=== PATIENT | female | born 1980 | race Caucasian/White ===

== ENCOUNTER 2021-08-04 09:01 | Emergency (ER) | payer BC ==
--- OUTSIDE RECORDS SUMMARY | 2021-08-04 09:04 | XMS REPORT | Continuity of Care Document ---
:1980 Author Organization [facility] t Address [address] [place] [address] Care Team Providers Name Role Phone Unavailable Unavailable Unavailable Problems This patient has no known problems. Allergies, Adverse Reactions, Alerts This patient has no known allergies or adverse reactions. Medications Ordered Filled Start Stop Current Ordering Indication Dosage Frequency Signature Comments Components Source Medication Medication Date Date Medication? Clinician (SIG) Name Name Nystatin-Tr Nystatin-Tr Yes Junaid [address] [facility] iamcinolone iamcinolone 4-12 [facility] applic[facility] 00 affected l area [facility] Clinics Levothyroxi Levothyroxi Yes Junaid [address] [facility] ne Sodium ne Sodium Obrien on an Lillian es - empty [facility] stomach in l the Outpati morning ent Clinics Euthyrox Euthyrox Yes Junaid TAKE [address] [facility]rien TABLET BY [facility] - MOUTH ONCE [facility] DAILY IN l THE Outpati MORNING ON ent AN EMPTY Clinics STOMACH FOR 30 DAYS Immunizations Ordered Filled Immunization Date Status Comments Sourc e Immunization Name Name TDAP > 7 TDAP > 7 2018-10-[address] [facility] - Years-Adacel Years-Adacel 00:00:00 [facility] Procedures This patient has no known procedures. Encounters Start End Encounter Admission Attending Care Care Encounter Source Date/Time Date/Time Type Type Clinicians Facility Department ID 2021-06-08 2021-06-08 Outpatient [facility] [id number] [facility] 2021-03-11 2021-03-11 [facility] [id number] [facility] 2021-03-09 2021-03-09 [facility] [id number] [facility] 2021-03-09 2021-03-09 [facility] [id number] [facility] 2021-01-15 2021-01-15 [facility] [id number] [facility] 2021-01-13 2021-01-13 Out[facility] [id number] [facility] 2020-10-02 2020-10-02 Out[facility] [id number] [facility] 2020-08-03 2020-08-03 Out[facility] [id number] [facility] 2020-06-26 2020-06-26 Out[facility] [id number] [facility] 2020-03-19 2020-03-19 [facility] [id number] [facility] 10[facility]30[facility] 10:30:[address] [address] [facility] - [facility] Medicine l Medicine Outpati ent Clinics 2020-01-10 2020-01-10 [facility] [id number] [facility] 09:00:00 09:00:[address] [facility] - Drive [facility] Medicine l Medicine Outpati ent Clinics 2019-07-24 2019-07-24 [facility] [id number] [facility] 10[facility]00:00 10:00:[address] Luke [facility] - Drive [facility] Medicine Outpati ent Clinics 2019-06-28 2019-06-28 [facility] [id number] [facility] 12:05:00 12:05:00 [place] [employer] [facility] - [employer] Medicine Outpati ent Clinics 2019-05-28 2019-05-28 [facility] [id number] 09:25:00 09:25:00 [place] - Drive [facility] Medicine Outpati ent Clinics 2019-04-02 2019-04-02 [facility] [id number] 11:08:00 11:08:00 [place] - [facility] Medicine Outpati ent Clinics 2019-03-08 2019-03-08 [facility] [id number] [address] 11:15:00 11:15:00 [place] [employer] [facility] Medicine Outpati ent Clinics 2019-01-07 2019-01-07 [facility] [id number] [address] 16:59:00 16:59:00 [facility] Clinic l Outpati ent Clinics 2018-12-28 2018-12-28 [facility] [id number] [facility] 11:00:00 11:00:00 [facility] Clinic l Outpati ent Clinics 2018-10-11 2018-10-11 [facility] [id number] [address] 11:30:00 11:30:00 [place] [employer] [facility] Medicine Outpati ent Clinics 2018-06-22 2018-06-22 [facility] [id number] [facility] 08:45:00 08:45:00 [place] - [facility] Medicine Outpati ent Clinics 2018-06-13 2018-06-13 [facility] [id number] 09:30:00 09:30:00 [place] [address] [facility] Medicine Outpati ent Clinics 2018-04-19 2018-04-19 [facility] [id number] 08:30:00 08:30:[address] [facility] Medicine Outpati ent Clinics Results This patient has no known results.
--- NOTE | 2021-08-04 09:56 | RAD REPORT ---
EXAM DESCRIPTION: RAD - Knee Right 3 View - 08/04/2021 9:33 am CLINICAL HISTORY: PAIN COMPARISON: <Comparisons> FINDINGS: No acute fracture. No malalignment. No significant focal degenerative changes. Intramedull dory emanuel in the tibia. No evidence of hardware complications. IMPRESSION: No acute osseous abnormality involving the right knee.
--- NOTE | 2021-08-04 10:06 | ER ---
Nurse's Notes [facility] Name: Taisha Torres Age: 41 yrs Sex: Female : 1980 Arrival Date: 08/04/2021 Time: 09:04 Bed 10 Private MD: Junaid Obrien Diagnosis: Pain in right knee Presentation: 08/04 09:06 Chief complaint: Patient states: fell onto right knee yesterday. Pt c/o right knee aa5 pain. Coronavirus screen: At this time, the client does not indicate any symptoms associated with coronavirus-19. Ebola Screen: No symptoms or risks identified at this time. Initial Sepsis Screen: Does the patient meet any 2 criteria? No. Patient's initial sepsis screen is negative. Does the patient have a suspected source of infection? No. Patient's initial sepsis screen is negative. Risk Assessment: Do you want to hurt yourself or someone else? Patient reports no desire to harm self or others. Onset of symptoms was July 2021. 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 - Social history:: Smoking status: Patient denies any tobacco usage or history of. Screenin:14 Abuse screen: Denies threats or abuse. Nutritional screening: No deficits noted. tw2 Tuberculosis screening: No symptoms or risk factors identified. Fall Risk None identified. Assessment: 09:09 General: Appears in no apparent distress. well groomed, Behavior is calm, cooperative, tw2 appropriate for age. Pain: Complains of pain in right knee. Neuro: Level of Consciousness is awake, alert, obeys commands, Oriented to person, place, time, Appropriate for age. Respiratory: Airway is patent Respiratory effort is even, unlabored, Respiratory pattern is regular, symmetrical. Musculoskeletal: Reports pain in right knee. 09:28 Reassessment: xray at bedside at this time. tw2 09:45 Reassessment: Patient appears in no apparent distress at this time. No changes from tw2 previously documented assessment. 10:07 Reassessment: Patient appears in no apparent distress at this time. No changes from tw2 previously documented assessment. Vital Signs: 09:06 BP 117 / 79; Pulse 80; Resp 16 S; Temp 97.8(TE); Pulse Ox 100% on R/A; Weight 70.9 kg aa5 (R); Height 4 ft. 11 in. (149.86 cm) (R); 09:06 Body Mass Index 31.57 (70.90 kg, 149.86 cm) aa5 ED Course: 09:04 Patient arrived in ED. am2 09:05 Junaid Obrien DO is Private Physician. am2 09:05 Acacia Jacobs FNP-C is [facility]. kb 09:05 Rajinder Camarena MD is Attending Physician. kb 09:06 Arm band placed on. aa5 09:07 Triage completed. aa5 09:09 Bed in low position. Call light in reach. tw2 09:13 Candi Saldana, RN is Primary Nurse. tw2 09:29 No provider procedures requiring assistance completed. tw2 09:34 Knee Right 3 View XRAY In Process Unspecified. EDMS 09:45 Warm blanket given. tw2 10:13 Patient did not have IV access during this emergency room visit. tw2 Administered Medications: No medications were administered Outcome: 10:05 Discharge ordered by . kb 10:12 Discharged to home ambulatory. tw2 10:12 Condition: stable 10:12 Discharge instructions given to patient, Instructed on discharge instructions, follow up and referral plans. CMS checks after PANCHO wrapping Demonstrated understanding of instructions, follow-up care, cms checks after pancho wrapping 10:13 Patient left the ED. tw2 Signatures: Dispatcher [employer] EDMS Acacia Jacobs FNP-C FNP-Ckb Calderon, Audri, RN RN aa5 Candi Saldana RN RN tw2 Usha Salazar am2 Corrections: (The following items were deleted from the chart) 09:08 09:06 Pulse 80bpm; Resp 16bpm; Spontaneous; Pulse Ox 100% RA; Temp 97.8F Temporal; aa5 aa5 09:09 09:06 BP 117 / 79; Pulse 80bpm; Resp 16bpm; Spontaneous; Pulse Ox 100% RA; Temp 97.8F aa5 Temporal; aa5
--- NOTE | 2021-08-04 10:06 | EDPHYS ---
Physician Documentation [facility] Name: Taisha Torres Age: 41 yrs Sex: Female : 1980 Arrival Date: 08/04/2021 Time: 09:04 Bed 10 Private MD: [facility] ED Physician Rajinder Camarena HPI: 08/04 09:58 This 41 yrs old Female presents to ER via Wheelchair with complaints of Knee kb Pain - right. 10:03 The patient presents with decreased range of motion, an injury, pain. The complaints kb affect the right knee. Context: The problem was sustained at home, resulted from the patient falling, the patient can fully bear weight, the patient is able to ambulate. Onset: The symptoms/episode began/occurred yesterday. Modifying factors: The symptoms are alleviated by nothing. the symptoms are aggravated by weight bearing, bending knee. Associated signs and symptoms: The patient has no apparent associated signs or symptoms. Treatment prior to arrival includes: no previous treatment. Severity of symptoms: At their worst the symptoms were moderate, in the emergency department the symptoms are unchanged. The patient has not experienced similar symptoms in the past. The patient has not recently seen a physician. Pt reports she tripped over dog's leash yesterday and fell onto right knee. c/o right knee pain now. 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 - Social history:: Smoking status: Patient denies any tobacco usage or history of. ROS: 09:53 Constitutional: Negative for fever, chills, and weight loss. kb 09:53 MS/extremity: Positive for injury or acute deformity, decreased range of motion, pain, of the right knee. 09:53 All other systems are negative. Exam: 09:53 Constitutional: This is a well developed, well nourished patient who is awake, alert, kb and in no acute distress. Head/Face: Normocephalic, atraumatic. ENT: Moist Mucous membranes Respiratory: Respirations even and unlabored. No increased work of breathing, no retractions or nasal flaring. Skin: Warm, dry with normal turgor. Normal color. Neuro: Awake and alert, GCS 15, oriented to person, place, time, and situation. Moves all extremities. Normal gait. Psych: Awake, alert, with orientation to person, place and time. Behavior, mood, and affect are within normal limits. 09:53 Musculoskeletal/extremity: Extremities: grossly normal except: noted in the right knee: decreased ROM, pain, ROM: limited active range of motion due to pain, in the right knee, Circulation is intact in all extremities. Sensation intact. Weight bearing: able to fully bear weight. Vital Signs: 09:06 BP 117 / 79; Pulse 80; Resp 16 S; Temp 97.8(TE); Pulse Ox 100% on R/A; Weight 70.9 kg aa5 (R); Height 4 ft. 11 in. (149.86 cm) (R); 09:06 Body Mass Index 31.57 (70.90 kg, 149.86 cm) aa5 MDM: 09:09 Patient medically screened. kb 09:53 Data reviewed: vital signs, nurses notes. Data interpreted: Pulse oximetry: on room air kb is 100 %. Interpretation: normal. 10:02 Counseling: I had a detailed discussion with the patient and/or guardian regarding: the kb historical points, exam findings, and any diagnostic results supporting the discharge/admit diagnosis, radiology results, the need for outpatient follow up, a orthopedic surgeon, to return to the emergency department if symptoms worsen or persist or if there are any questions or concerns that arise at home. 08/04 09:08 Order name: Knee Right 3 View XRAY; Complete Time: 10:02 kb Administered Medications: No medications were administered Disposition: 11:36 Co-signature as Attending Physician, Rajinder Camarena MD I agree with the assessment and rn plan of care. Attestation: The patient's history, exam findings, diagnostics, and a summary of any interventions or procedures was reviewed in detail with Acacia VALERIO. Disposition Summary: 08/04/21 10:05 Discharge Ordered Location: Home Condition: Stable kb Diagnosis - Pain in right knee kb Followup: kb - With: Emergency Department - When: As needed - Reason: Worsening of condition Followup: kb - With: Private Physician - When: 2 - 3 days - Reason: Recheck today's complaints, Continuance of care, Re-evaluation by your physician Discharge Instructions: - Acute Knee Pain, Adult, [id number] kb - Discharge Summary Sheet tw2 Forms: - Medication Reconciliation Form kb - Thank You Letter kb - Antibiotic Education kb - Work release form tw2 - Prescription Opioid Use kb Signatures: Dispatcher [employer] EDAcacia Elizondo, IMAN ACOSTA-Rajinder Nair MD MD rn Calderon, Audri, RN RN aa5
[2021-08-04 10:26] VITALS: BP 117/79; TEMP 97.8; O2SAT 100
== END 2021-08-04 10:13 | disposition home or self-care (01) ==
LOC: ER 09:01
DX: M25.561 Pain in right knee (principal); E03.9 Hypothyroidism, unspecified
CPT/HCPCS: 99283

== ENCOUNTER 2024-02-15 14:23 | Emergency (ER) | payer OTHER ==
[2024-02-15] MEDS ORDERED: NA CHLORIDE 0.9% 1,000 ML ONE (15:21)
[2024-02-15] MEDS ORDERED: MORPHINE 4 MG/ML SYR ONE (15:49)
[2024-02-15] MEDS ORDERED: ONDANSETRON 4 MG/2 ML VIAL ONE (15:49)
[2024-02-15 16:07] LABS: Albumin 2.5 g/dL (3.4-5.0); Albumin/Globulin Ratio 0.6 (1.1-1.8); Alkaline Phosphatase 57 U/L (45-117); Anion Gap 8.5 mEq/L (5.0-15.0); BUN Blood Urea Nitrogen 13 mg/dL (7-18); Bicarbonate 24 mEq/L (21-32); Bilirubin Total 0.2 mg/dL (0.2-1.0); Globulin 4.3 g/dL (2.3-3.5); Glomerular Filtration Rate 95 ml/min (=/>90); Glucose Level 169 mg/dL (74-106); Lipase 12 U/L (13-75); Potassium 4.5 mEq/L (3.5-5.1); Protein, Total 6.8 g/dL (6.4-8.2); Sodium Level 133 mEq/L (136-145)
[2024-02-15 16:09] LABS: ALT/SGPT < 14 U/L (13-56); AST/SGOT < 10 U/L (15-37); Troponin High Sensitivity < 3.0 pg/mL (<58.9)
[2024-02-15 16:23] LABS: Absolute Eosinophils 0.3 K/uL (0-0.5); Absolute Lymphocytes (CBC) 1.2 K/uL (0.7-4.9); Absolute Monocytes 0.9 K/uL (0.1-1.3); Absolute Neutrophil 13.2 K/uL (1.8-8.0); Basophils % 0.3 % (0-1.3); Eosinophils % 1.6 % (0-4.4); Hematocrit 24.4 % (36.0-45.0); Hemoglobin 7.4 g/dL (12.0-15.0); Lymphocytes % 7.5 % (15.3-44.8); MCH 24.3 pg (27.0-35.0); MCHC 30.2 g/dL (32.0-36.0); MCV 80.3 fL (80-100); MPV 7.1 fL (7.6-11.3); Monocytes % 5.7 % (3.3-12.3); Neutrophils % 84.9 % (41.7-73.7); Platelets 472 thou/uL (152-406); RBC Red Blood Cell Count 3.04 M/uL (3.86-4.86); Red Cell Distribution Width 24.6 % (12.1-15.2)
[2024-02-15 16:47] LABS: Anisocytosis 2+; Blood Morphology Comment NOTED (NOT SEEN); Platelet Estimate INCR; White Blood Cell Scan OK (OK)
--- NOTE | 2024-02-15 16:47 | RAD REPORT ---
EXAM DESCRIPTION: CTAbdomen Pelvis W Contrast - 02/15/2024 4:37 pm CLINICAL HISTORY: Abdominal pain. Known cancer now bleeding;Abd pain COMPARISON: <Comparisons> TECHNIQUE: Biphasic CT imaging of the abdomen and pelvis was performed with 100 ml non-ionic IV cont rast. All CT scans are performed using dose optimization technique as appropriate and may include automated exposure control or mA/KV adjustment according to patient size. FINDINGS: The lung bases are clear. The liver is diffusely fatty. Spleen, pancreas, adrenal glands and kidneys are within normal limits. No bowel obstruction, free air, free fluid or abscess. Significant fecal retention is seen. Nonvisual ized appendix. Large necrotic lymph nodes are seen in both inguinal chains, largest on the left rm uring 3 cm, neoplastic in origin. Several perirectal lymph nodes are present in the inferior pelvis a nterior to the sacrum, largest measuring 9 mm. Left pelvic sidewall lymphadenopathy is present measur ing 23 mm. Right iliac chain lymphadenopathy measuring 21 mm. Large irregular necrotic vulvar mass measuring 13 x 7 cm. IMPRESSION: Irregular necrotic bulbar mass presumed malignant, 13 x 7 cm. Metastatic pelvic lymphadenopathy at multiple stations as described. Prominent constipation.
[2024-02-15 17:26] LABS: Specific Gravity 1.017 (1.005-1.030); Sqamous Epithelial <5 /HPF (None Seen); Urine Bacteria None Seen /HPF (<20); Urine Bilirubin NEGATIVE (Negative); Urine Blood 1+ (Negative); Urine Clarity Clear (Clear); Urine Color Colorless (Yellow); Urine Crystals Unidentified Few /HPF (None Seen); Urine Culture Reflex Order NOT NEEDED; Urine Glucose NEGATIVE (Negative); Urine Ketones NEGATIVE (Negative); Urine Microscopic Reflex YN ORDER UMIC; Urine Mucus Slight /HPF (None Seen); Urine Nitrite NEGATIVE (Negative); Urine Protein NEGATIVE (Negative); Urine RBC <5 /HPF (None Seen); Urine Urobilinogen Normal (Normal); Urine WBC <5 /HPF (<5); Urine Yeast (Budding) Trace /HPF (None Seen); Urine pH 5.5 (5.0-7.0)
[2024-02-15] MEDS ORDERED: Ringers Lactate 1,000 ML IV ONE (17:32)
--- NOTE | 2024-02-15 19:10 | EDPHYS ---
Physician Documentation [facility] Name: Taisha Torres Age: 44 yrs Sex: Female : 1980 Arrival Date: 02/15/2024 Time: 14:23 Bed 18 Private MD: Devora Melgar HPI: 02/14 16:24 This 44 yrs old Female presents to ER via Ambulatory with complaints of Vaginal sp3 Bleeding or rectal bleeding. 16:24 44-year-old female with a history of rectal cancer, vaginal cancer, hypothyroidism sp3 currently on chemo treatment at [facility] who is also a patient of [facility] Obrien now presents to the ED with chief complaint pelvic bleeding with probable source vaginal versus rectal. Bleeding has subsided though at home it was a steady stream into the toilet as reported. Patient with her baseline cancer pain which has not significantly increased. She denies any syncope, near syncope, bleeding anywhere else, headache, neck pain, chest pain, shortness of breath, vomiting, diarrhea, rash, or any other signs or symptoms on ROS at this time. She does endorse nausea. She had 2 units of PRBCs transfused last week for hemoglobin of 5 which brought it up to 7.. 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 - Infectious Disease History:: Denies. - Social history:: Smoking status: Patient denies any tobacco usage or history of. ROS: 16:26 Constitutional: Negative for fever, chills, and weight loss, Eyes: Negative for injury, sp3 pain, redness, and discharge, ENT: Negative for injury, pain, and discharge, Neck: Negative for injury, pain, and swelling, Cardiovascular: Negative for chest pain, palpitations, and edema, Respiratory: Negative for shortness of breath, cough, wheezing, and pleuritic chest pain, Back: Negative for injury and pain, MS/Extremity: Negative for injury and deformity, Skin: Negative for injury, rash, and discoloration, Neuro: Negative for headache, weakness, numbness, tingling, and seizure, Psych: Negative for depression, anxiety, suicide ideation, homicidal ideation, and hallucinations, Allergy/Immunology: Negative for hives, rash, and allergies, Endocrine: Negative for neck swelling, polydipsia, polyuria, polyphagia, and marked weight changes, Hematologic/Lymphatic: Negative for swollen nodes, abnormal bleeding, and unusual bruising, 16:26 All other systems are negative, Exam: 16:27 Constitutional: This is a well developed, well nourished patient who is awake, alert, sp3 and in no acute distress. Head/Face: Normocephalic, atraumatic. Eyes: Pupils equal round and reactive to light, extra-ocular motions intact. Lids and lashes normal. Conjunctiva and sclera are non-icteric and not injected. Cornea within normal limits. Periorbital areas with no swelling, redness, or edema. Neck: Trachea midline, no thyromegaly or masses palpated, and no cervical lymphadenopathy. Supple, full range of motion without nuchal rigidity, or vertebral point tenderness. No Meningismus. Chest/axilla: Normal chest wall appearance and motion. Nontender with no deformity. No lesions are appreciated. Respiratory: Lungs have equal breath sounds bilaterally, clear to auscultation and percussion. No rales, rhonchi or wheezes noted. No increased work of breathing, no retractions or nasal flaring. Back: No spinal tenderness. No costovertebral tenderness. Full range of motion. Skin: Warm, dry with normal turgor. Normal color with no rashes, no lesions, and no evidence of cellulitis. MS/ Extremity: Pulses equal, no cyanosis. Neurovascular intact. Full, normal range of motion. Neuro: Awake and alert, GCS 15, oriented to person, place, time, and situation. Cranial nerves II-XII grossly intact. Motor strength 5/5 in all extremities. Sensory grossly intact. Cerebellar exam normal. Normal gait. Psych: Awake, alert, with orientation to person, place and time. Behavior, mood, and affect are within normal limits. 16:27 Cardiovascular: Rate: tachycardic, 16:27 : Initial exam deferred secondary to patient being in the chair in the middle of the ED., 16:29 ECG was reviewed by the Attending Physician. EKG demonstrates sinus tachycardia at 100 sp3 bpm with normal intervals, normal QRS, normal axis, nonspecific diffuse ST's ST changes without evidence of acute ischemia. Vital Signs: 14:38 BP 104 / 68; Pulse 113; Resp 20; Temp 98.5; Pulse Ox 97% ; Weight 64.86 kg; Height 4 db ft. 10 in. ; 16:13 BP 94 / 49; Pulse 83; Resp 16; Pulse Ox 99% ; nj1 17:10 BP 98 / 62; Pulse 80; Resp 16; Pulse Ox 100% ; nj1 18:07 BP 96 / 59; Pulse 80; Resp 18; Pulse Ox 98% on R/A; ld1 18:45 BP 95 / 65; Pulse 85; Resp 14; Pulse Ox 98% on R/A; nj1 14:38 Body Mass Index 29.89 (64.86 kg, 147.32 cm) db MDM: 14:39 Patient medically screened. sb4 16:27 Data reviewed: vital signs, nurses notes, old medical records, lab test result(s), EKG, sp3 radiologic studies. ED course: 44-year-old female with extensive cancer on treatment now with bleeding and generalized weakness. Differential diagnosis includes anemia from bleeding, cancer pain, electrolyte abnormality, among others. I am not highly suspicious for ACS, sepsis, shock. Workup will include CT scan of the abdomen pelvis with IV contrast, laboratory values, urinalysis, type and screen, and general hemodynamic support. Disposition pending workup and patient course with possible transfer to [facility] if indicated.. 19:08 ED course: Had extensive conversation with family. After second liter IV fluids, sp3 patient is feeling much improved. Blood pressure still in the upper 90s. Offered transfer to [facility] however patient and spouse elected to stay home due to them having appointment started tomorrow morning anyways and patient feeling better. If rebleeding occurs or there is any concern, they will come back here. This plan is acceptable to me as well given there close accessibility to the hospital.. 02/14 14:45 Order name: CBC with Diff; Complete Time: 16:49 sp3 02/14 14:45 Order name: CMP; Complete Time: 16:49 sp3 02/14 14:45 Order name: Lipase; Complete Time: 16:49 sp3 02/14 14:45 Order name: Urinalysis w/ reflexes; Complete Time: 17:39 sp3 02/14 14:45 Order name: Lactate w/ 2H reflex if indic.; Complete Time: 16:49 sp3 02/14 14:45 Order name: Troponin High Sensitivity; Complete Time: 16:49 sp3 02/14 16:30 Order name: CBC Smear Scan; Complete Time: 16:49 EDMS 02/14 14:45 Order name: CT Abd/Pelvis - IV Contrast Only; Complete Time: 16:49 sp3 02/14 14:45 Order name: EKG; Complete Time: 14:46 sp3 02/14 14:45 Order name: IV Saline Lock; Complete Time: 15:24 sp3 02/14 14:45 Order name: Labs collected and sent; Complete Time: 15:24 sp3 02/14 14:45 Order name: EKG - Nurse/Tech; Complete Time: 15:24 sp3 02/14 16:50 Order name: Vital Signs; Complete Time: 17:30 sp3 Administered Medications: 15:24 Drug: NS 0.9% IV 1000 ml IV at 1 bolus Per protocol; 1000 mL bolus Route: IV; Rate: 1 lg3 bolus; Site: left antecubital; 16:03 Drug: morphine IVP or IV 4 mg IVP once over 4 mins Route: IVP; Infused Over: 4 mins; lg3 Site: left antecubital; 16:03 Drug: Ondansetron IVP 4 mg IVP once; over 2 minutes Route: IVP; Site: left antecubital; lg3 18:05 Drug: Lactated Ringers Solution IV 1000 ml IV at 1000 per protocol bolus Route: IV; ld1 Rate: 1000 per protocol; Site: left antecubital; Disposition Summary: 02/15/24 19:10 Discharge Ordered Notes: Location: Home sp3 Condition: Stable sp3 Diagnosis - Vaginal/rectal bleeding due to cancer, dehydration, abdominal pain sp3 Followup: sp3 - With: Private Physician - When: Upon discharge from the Emergency Department - Reason: Continuance of care Discharge Instructions: - Discharge Summary Sheet sp3 - Dehydration, Adult sp3 - Living With Chronic Cancer sp3 Forms: - Medication Reconciliation Form sp3 - Antibiotic Education sp3 - Prescription Opioid Use sp3 - Patient Portal Instructions sp3 - Leadership Thank You Letter sp3 Signatures: Dispatcher [employer] Mickie Huber RN RN lg3 April Pineda RN RN ld1 Devora Obrien MD MD sp3 Chantell Manley RN RN db Yakelin Elena PA-C PA-C sb4 Rocio Wolfe bc6 Corrections: (The following items were deleted from the chart) 14:40 14:40 Allergies: Codeine (Itching); db db 17:31 14:46 TYPE AND SCREEN+[id number].BRZ ordered. EDMS EDMS
--- NOTE | 2024-02-15 19:10 | ER ---
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 STATES WENT TO USE RESTROOM TODAY AND STARTED HAVING BLEEDING. STATES HAPPENED ALL OF A SUDDEN AND WAS CONCERNED BECAUSE HAS HAD A BLOOD TRANSFUSION IN THE PAST. Coronavirus screen: Client denies travel out of the [place] in the last 14 days. At this time, the client does not indicate any symptoms associated with coronavirus-19. Ebola Screen: Patient negative for fever greater than or equal to 101.5 degrees Fahrenheit, and additional compatible Ebola Virus Disease symptoms Patient denies exposure to infectious person. Patient denies travel to an Ebola-affected area in the 21 days before illness onset. No symptoms or risks identified at this time. Initial Sepsis Screen: Does the patient meet any 2 criteria? HR > 90 bpm. No. Patient's initial sepsis screen is negative. Does the patient have a suspected source of infection? No. Patient's initial sepsis screen is negative. Risk Assessment: Do you want to hurt yourself or someone else? Patient reports no desire to harm self or others. Onset of symptoms was February 15, 2024. 14:38 Method Of Arrival: Ambulatory db 14:38 Acuity: ELDER 3 db Triage Assessment: 14:40 General: Appears in no apparent distress. uncomfortable, Behavior is cooperative, db anxious. Pain: Complains of pain in buttocks and pelvis. Neuro: Level of Consciousness is awake, alert, obeys commands, Oriented to person, place, time, situation. : Reports vaginal bleeding that is heavy flow. 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 - Infectious Disease History:: Denies. - Social history:: Smoking status: Patient denies any tobacco usage or history of. Screenin:13 [facility] ED Fall Risk Assessment (Adult) History of falling in the last 3 months, nj1 including since admission No falls in past 3 months (0 pts) Confusion or Disorientation No (0 pts) Intoxicated or Sedated No (0 pts) Impaired Gait No (0 pts) Mobility Assist Device Used No (0 pt) Altered Elimination No (0 pt) Score/Fall Risk Level 0 - 2 = Low Risk Oriented to surroundings, Maintained a safe environment, Hourly rounding (assess needs \T\ fall precautionary measures) done. Abuse screen: Denies threats or abuse. Denies injuries from another. Nutritional screening: No deficits noted. Tuberculosis screening: No symptoms or risk factors identified. Assessment: 16:20 General: Appears in no apparent distress. comfortable, Behavior is calm, cooperative, nj1 appropriate for age. 16:20 Pain: Denies pain. Neuro: Level of Consciousness is awake, alert, obeys commands, nj1 Oriented to person, place, time, situation. Neuro: Reports weakness. Cardiovascular: Patient's skin is warm and dry. Respiratory: Airway is patent Respiratory effort is even, unlabored. : Reports vaginal bleeding that is. Derm: Skin is pale. 17:10 Reassessment: Patient appears in no apparent distress at this time. No changes from nj1 previously documented assessment. Patient and/or family updated on plan of care and expected duration. Pain level reassessed. Patient is alert, oriented x 3, equal unlabored respirations, skin warm/dry/pink. Vital Signs: 14:38 BP 104 / 68; Pulse 113; Resp 20; Temp 98.5; Pulse Ox 97% ; Weight 64.86 kg; Height 4 db ft. 10 in. ; 16:13 BP 94 / 49; Pulse 83; Resp 16; Pulse Ox 99% ; nj1 17:10 BP 98 / 62; Pulse 80; Resp 16; Pulse Ox 100% ; nj1 18:07 BP 96 / 59; Pulse 80; Resp 18; Pulse Ox 98% on R/A; ld1 18:45 BP 95 / 65; Pulse 85; Resp 14; Pulse Ox 98% on R/A; nj1 14:38 Body Mass Index 29.89 (64.86 kg, 147.32 cm) db ED Course: 14:35 Patient arrived in ED. mg5 14:39 Yakelin Elena PA-C [facility]. sb4 14:39 Devora Obrien MD is Attending Physician. sb4 14:40 Triage completed. db 14:40 Arm band placed on. db 15:24 Inserted saline lock: 20 gauge in left antecubital area, using aseptic technique. Blood lg3 collected. 15:24 Troponin High Sensitivity Sent. lg3 15:24 CBC with Diff Sent. lg3 15:24 CMP Sent. lg3 15:24 Lipase Sent. lg3 16:04 Annalise De La Torre, JAEL is Primary Nurse. nj1 16:14 Patient has correct armband on for positive identification. Bed in low position. Call nj1 light in reach. Adult w/ patient. Provided Education on: call light, fall precautions. 16:39 CT Abd/Pelvis - IV Contrast Only In Process Unspecified. EDMS 19:00 Report given to Magdalene ELDER. nj1 19:29 No provider procedures requiring assistance completed. IV discontinued, intact, kd3 bleeding controlled, No redness/swelling at site. Pressure dressing applied. Administered Medications: 15:24 Drug: NS 0.9% IV 1000 ml IV at 1 bolus Per protocol; 1000 mL bolus Route: IV; Rate: 1 lg3 bolus; Site: left antecubital; 16:03 Drug: morphine IVP or IV 4 mg IVP once over 4 mins Route: IVP; Infused Over: 4 mins; lg3 Site: left antecubital; 16:03 Drug: Ondansetron IVP 4 mg IVP once; over 2 minutes Route: IVP; Site: left antecubital; lg3 18:05 Drug: Lactated Ringers Solution IV 1000 ml IV at 1000 per protocol bolus Route: IV; ld1 Rate: 1000 per protocol; Site: left antecubital; Medication: 19:29 VIS not applicable for this client. kd3 Outcome: 19:10 Discharge ordered by . sp3 19:29 Discharged to home via wheelchair, with family, kd3 19:29 Condition: stable 19:29 Discharge instructions given to patient, family, Instructed on discharge instructions, follow up and referral plans. Demonstrated understanding of instructions, follow-up care, 19:30 Patient left the ED. kd3 Signatures: Dispatcher [employer] Mickie Huber RN RN lg3 April Pineda, RN RN ld1 Devora Obrien MD MD sp3 Magdalene Pedraza, RN RN kd3 Chantell Manley RN RN Yakelin Varma PA-C PAKarthik sb4 Annalise De La Torre RN RN nj1 Alvaro Natalia mg5 Corrections: (The following items were deleted from the chart) 14:40 14:40 Allergies: Codeine (Itching); db db 17:31 15:24 TYPE AND SCREEN+BB.LAB.BRZ drawn and sent. lg3 EDMS
[2024-02-15 19:39] VITALS: TEMP 98.5; O2SAT 98
[2024-02-15 19:55] VITALS: BP 95/65
--- NOTE | 2024-02-16 16:51 | EKG ---
Test Date: 2024-02-15 Test Time: 15:27:47 Language Assistant: HB MEASUREMENT RESULTS: Intervals: Rate: 101 IA: 138 QRSD: 76 QT: 336 QTc: 435 [place]: P: 56 IA: 138 QRS: 69 T: 55 INTERPRETIVE STATEMENTS: Sinus tachycardia Otherwise normal ECG No previous ECG available for comparison Electronically Signed On 02-16-24 16:48:29 CDT by Tru Tian
== END 2024-02-15 19:30 | disposition home or self-care (01) ==
LOC: ER 14:23
DX: N93.8 Other specified abnormal uterine and vaginal bleeding (principal); K62.5 Hemorrhage of anus and rectum; E86.0 Dehydration; R10.9 Unspecified abdominal pain; C20 Malignant neoplasm of rectum; C52 Malignant neoplasm of vagina
CPT/HCPCS: 93005; 85025; 81001; 36415; 83605; 84484; 83690; 80053; 74177; 96375; 96374; 99284; Q9967; J2405; J7120; J7030

== ENCOUNTER 2024-02-16 09:31 | Emergency (ER) | payer OTHER ==
[2024-02-16 10:01] LABS: Absolute Basophils 0.1 K/uL (0-0.5); Absolute Eosinophils 0.2 K/uL (0-0.5); Absolute Lymphocytes (CBC) 1.5 K/uL (0.7-4.9); Absolute Neutrophil 16.7 K/uL (1.8-8.0); Basophils % 0.3 % (0-1.3); Eosinophils % 1.2 % (0-4.4); Hematocrit 16.7 % (36.0-45.0); Lymphocytes % 7.7 % (15.3-44.8); MCH 23.8 pg (27.0-35.0); MCHC 29.7 g/dL (32.0-36.0); MCV 80.3 fL (80-100); MPV 7.3 fL (7.6-11.3); Monocytes % 5.1 % (3.3-12.3); Neutrophils % 85.7 % (41.7-73.7); Nucleated RBC Absolute Count 0.2 (0-0); Nucleated Red Blood Cells % 0.9 % (0-0); Platelets 439 thou/uL (152-406); RBC Red Blood Cell Count 2.08 M/uL (3.86-4.86); Red Cell Distribution Width 23.8 % (12.1-15.2)
--- NOTE | 2024-02-16 10:03 | EDPHYS ---
Physician Documentation [facility] Name: Taisha Torres Age: 44 yrs Sex: Female : 1980 Arrival Date: 02/16/2024 Time: : Bed 4 Private MD: Tobias Britt HPI: 02/15 09:57 This 44 yrs old Female presents to ER via Unassigned with complaints of Vaginal lane Bleeding, Near Syncope. 09:57 The patient presents to the emergency department with bleeding from the rectum/anus, lane that is moderate, pain in the rectal area. Onset: The symptoms/episode began/occurred 3 day(s) ago. Context: the patient vulvar cancer. The patient presents with pelvic pain, that is located in/on the perineum, right labia majora, left labia majora, right labia minora and left labia minora, vaginal bleeding that is heavy. Onset: The symptoms/episode began/occurred 3 day(s) ago. Modifying factors: The symptoms are alleviated by nothing, the symptoms are aggravated by movement, pressure. Associated signs and symptoms: Pertinent positives: cramping, vaginal bleeding. Severity of symptoms: At their worst the symptoms were moderate, severe, in the emergency department the symptoms have improved, moderately. The patient is not sexually active. Historical: - Allergies: 09:59 No Known Allergies; iw - Home Meds: 10:02 levothyroxine oral [Active]; iw - PMHx: 09:57 Hypothyroidism; rectal cancer; Vaginal cancer; iw - PSHx: 09:57 section; right knee; iw - Immunization history:: Adult Immunizations unknown. - Infectious Disease History:: Denies. - Family history:: not pertinent. - Social history:: Smoking status: unknown. ROS: 09:57 Constitutional: Negative for fever, chills, and weight loss, Eyes: Negative for injury, lane pain, redness, and discharge, ENT: Negative for injury, pain, and discharge, Neck: Negative for injury, pain, and swelling, Cardiovascular: Negative for chest pain, palpitations, and edema, Respiratory: Negative for shortness of breath, cough, wheezing, and pleuritic chest pain, Abdomen/GI: Negative for abdominal pain, nausea, vomiting, diarrhea, and constipation, Back: Negative for injury and pain, MS/Extremity: Negative for injury and deformity, Neuro: Negative for headache, weakness, numbness, tingling, and seizure, 09:57 : Positive for vaginal bleeding, of the pelvis, Exam: 09:57 Constitutional: This is a well developed, well nourished patient who is awake, alert, lane and in no acute distress. Head/Face: Normocephalic, atraumatic. Eyes: Pupils equal round and reactive to light, extra-ocular motions intact. Lids and lashes normal. Conjunctiva and sclera are non-icteric and not injected. Cornea within normal limits. Periorbital areas with no swelling, redness, or edema. ENT: Nares patent. No nasal discharge, no septal abnormalities noted. Tympanic membranes are normal and external auditory canals are clear. Oropharynx with no redness, swelling, or masses, exudates, or evidence of obstruction, uvula midline. Mucous membranes moist. Neck: Trachea midline, no thyromegaly or masses palpated, and no cervical lymphadenopathy. Supple, full range of motion without nuchal rigidity, or vertebral point tenderness. No Meningismus. Chest/axilla: Normal chest wall appearance and motion. Nontender with no deformity. No lesions are appreciated. Cardiovascular: Regular rate and rhythm with a normal S1 and S2. No gallops, murmurs, or rubs. Normal PMI, no JVD. No pulse deficits. Respiratory: Lungs have equal breath sounds bilaterally, clear to auscultation and percussion. No rales, rhonchi or wheezes noted. No increased work of breathing, no retractions or nasal flaring. Abdomen/GI: Soft, non-tender, with normal bowel sounds. No distension or tympany. No guarding or rebound. No evidence of tenderness throughout. Back: No spinal tenderness. No costovertebral tenderness. Full range of motion. Skin: Warm, dry with normal turgor. Normal color with no rashes, no lesions, and no evidence of cellulitis. MS/ Extremity: Pulses equal, no cyanosis. Neurovascular intact. Full, normal range of motion. Neuro: Awake and alert, GCS 15, oriented to person, place, time, and situation. Cranial nerves II-XII grossly intact. Motor strength 5/5 in all extremities. Sensory grossly intact. Cerebellar exam normal. Normal gait. 09:57 : Pelvic Exam: External exam: erythema is noted, gross fungating vulvar cancer , no active bleeding now, 10:53 ECG was reviewed by the Attending Physician. [facility] Vital Signs: 09:55 BP 92 / 44; Pulse 97; Resp 18; Temp 97; Pulse Ox 100% on R/A; Weight 63.5 kg; Height 4 iw ft. 10 in. ; Pain 6/10; 09:59 BP 95 / 60; Pulse 95; Resp 18; Pulse Ox 100% on R/A; ph 10:19 Pain 6/10; nj1 10:52 BP 100 / 57; Pulse 85; Resp 12; Pulse Ox 100% ; nj1 12:00 BP 91 / 58; Pulse 86; Resp 12; Temp 97.8(TE); Pulse Ox 100% ; nj1 12:05 BP 82 / 49; MAP 61 mmHg; nj1 13:14 BP 109 / 74; Pulse 88; Resp 11; Pulse Ox 100% on R/A; nj1 09:55 Body Mass Index 29.26 (63.50 kg, 147.32 cm) iw 09:55 Pain Scale: Adult iw 10:19 Pain Scale: Adult nj1 MDM: 09:35 Patient medically screened. [facility] 10:51 Differential diagnosis: abscess, dysmenorrhea, malignancy, cervical cancer. Data [facility] reviewed: vital signs, nurses notes, EMS record, lab test result(s), EKG, radiologic studies, CT scan, plain films. Consideration of Admission/Observation Escalation of care including admission/observation considered. I considered the following discharge prescriptions or medication management in the emergency department Medications were administered in the Emergency Department. See MAR. Independent interpretation of the following test(s) in the Emergency Department EKG: See my EKG interpretation above. Test considered but Not performed: CT: no repeat ct. Care significantly affected by the following chronic conditions: Cancer. 02/15 09:47 Order name: Type And Screen [facility] 02/15 09:47 Order name: Basic Metabolic Panel; Complete Time: 10:[address] [facility] 02/15 09:47 Order name: CBC with Diff; Complete Time: 13:[address] [facility] 02/15 09:47 Order name: LFT's; Complete Time: 10:[address] [facility] 02/15 09:47 Order name: Magnesium; Complete Time: 10:[address] [facility] 02/15 09:47 Order name: NT PRO-BNP; Complete Time: 10:[address] [facility] 02/15 09:47 Order name: PT-INR; Complete Time: 12:[address] [facility] 02/15 09:47 Order name: Troponin HS; Complete Time: 10:[address] [facility] 02/15 10:30 Order name: Packed RBC Leukored [facility] 02/15 10:56 Order name: ABO/RH no charge; Complete Time: 12:05 [facility] 02/15 12:35 Order name: CBC Smear Scan; Complete Time: 13:01 [facility] 02/15 09:47 Order name: XRAY Chest (1 view); Complete Time: 10:[address] [facility] 02/15 09:47 Order name: Cardiac monitoring; Complete Time: 10:[address] [facility] 02/15 09:47 Order name: EKG - Nurse/Tech; Complete Time: 10:[address] [facility] 02/15 09:47 Order name: IV Saline Lock; Complete Time: 10:[address] [facility] 02/15 09:47 Order name: Labs collected and sent; Complete Time: 10:[address] [facility] 02/15 09:47 Order name: O2 Per Protocol; Complete Time: 10:[address] [facility] 02/15 09:47 Order name: O2 Sat Monitoring; Complete Time: 10:[address] [facility] 02/15 09:47 Order name: IV Saline Lock - Large Bore; Complete Time: 10:[address] [facility] 02/15 10:24 Order name: Transfuse; Complete Time: 13:[address] [facility] EC:53 Rate is 86 beats/min. Rhythm is regular. QRS [facility] is Normal. [place] interval is normal. QRS lane interval is normal. QT interval is normal. No Q waves. T waves are Normal. No ST changes noted. Clinical impression: Normal ECG and No evidence of ischemia. Interpreted by me. Reviewed by me. Administered Medications: 10:16 Drug: NS 0.9% IV 1000 ml IV at 1 bolus Per protocol; 1000 mL bolus Route: IV; Rate: 1 nj1 bolus; Site: right antecubital; 11:30 Follow up: Response: No adverse reaction; IV Status: Completed infusion; IV Intake: nj1 1000ml 10:17 Drug: Ondansetron IVP 4 mg IVP once; over 2 minutes Route: IVP; Site: right antecubital;nj1 11:00 Follow up: Response: No adverse reaction nj1 10:19 Drug: fentaNYL (PF) IVP 25 mcg IVP once Route: IVP; Site: right antecubital; nj1 11:00 Follow up: Response: No adverse reaction; Pain is decreased nj1 10:40 Drug: Piperacillin-Tazobactam IVPB 3.375 grams IVPB once over 60 mins; (mix in NS 100 nj1 mL) Route: IVPB; Infused Over: 60 mins; Site: left antecubital; 11:40 Follow up: Response: No adverse reaction; IV Status: Completed infusion; IV Intake: nj1 100ml 11:05 Drug: tranexamic acid 1000 mg IV at per protocol once; administer at a rate not to nj1 exceed 100 mg per min Route: IV; Rate: per protocol; Infused Over: 20 mins; Site: right antecubital; 11:25 Follow up: Response: No adverse reaction; IV Status: Completed infusion; IV Intake: nj1 100ml 12:27 Drug: NS 0.9% IV 1000 ml IV at 1 bolus Per protocol; 1000 mL bolus Route: IV; Rate: 1 nj1 bolus; Site: right antecubital; 13:23 Follow up: IV Status: Infusion continued upon transfer; IV Intake: 500ml nj1 12:49 Drug: Phytonadione Sub-Q 10 mg Sub-Q once Route: Sub-Q; Site: left upper abdomen; nj1 13:23 Follow up: Response: No adverse reaction nj1 13:03 Drug: fentaNYL (PF) IVP 25 mcg IVP once Route: IVP; Site: left antecubital; nj1 13:24 Follow up: Response: No adverse reaction; Pain is decreased nj1 Disposition Summary: 02/16/24 10:03 Transfer Ordered Notes: Transfer Location: [facility] lane Reason: Higher level of care lane Condition: Fair lane Problem: new lane Symptoms: have improved lane Accepting Physician: to [facility], tele wind tunnel technician onc(02/16/24 13:30) nj1 Diagnosis - Acute posthemorrhagic anemia lane - 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 EDMS EDMS 09:47 09:47 CBC+H.LAB.BRZ ordered. EDMS EDMS 09:47 09:47 HEPATIC FUNCTION+C.LAB.BRZ ordered. EDMS EDMS 09:47 09:47 MAGNESIUM+C.LAB.BRZ ordered. EDMS EDMS 09:47 09:47 PROBNP+C.LAB.BRZ ordered. EDMS EDMS 09:47 09:47 PROTIME (+INR)+COAG.LAB.BRZ ordered. EDMS EDMS 09:47 09:47 Troponin High Sensitivity+C.LAB.BRZ ordered. EDMS EDMS 09:47 09:47 TYPE AND SCREEN+BB.LAB.BRZ ordered. EDMS EDMS 10:27 10:24 PACKED RBC LEUKORED+BB.LAB.BRZ ordered. EDMS EDMS 10:53 10:03 to [facility], tele wind tunnel technician onc lane [facility] 13:30 10:53 to [facility], tele wind tunnel technician onc [facility] nj1
--- NOTE | 2024-02-16 10:03 | ER ---
Nurse's Notes [facility] Name: Taisha Torres Age: 44 yrs Sex: Female : 1980 Arrival Date: 02/16/2024 Time: 09: Bed 4 Private MD: Diagnosis: Acute posthemorrhagic anemia;Anemia in neoplastic disease;Abnormal uterine and vaginal bleeding, unspecified-extensive stage 4 vulvar cancer;Elevated white blood cell count Presentation: 02/15 09:55 Chief complaint: EMS states: pt has hx of vulvar/vaginal/rectal cancer Stage 4, started iw bleeding last night , had syncopal episode while in shower this morning. Coronavirus screen: At this time, the client does not indicate any symptoms associated with coronavirus-19. Ebola Screen: Patient negative for fever greater than or equal to 101.5 degrees Fahrenheit, and additional compatible Ebola Virus Disease symptoms Patient denies exposure to infectious person. Patient denies travel to an Ebola-affected area in the 21 days before illness onset. No symptoms or risks identified at this time. Risk Assessment: Do you want to hurt yourself or someone else? Patient reports no desire to harm self or others. Onset of symptoms was February 16, 2024. 09:55 Method Of Arrival: EMS: [facility] iw 09:55 Acuity: ELDER 2 iw 10:51 Initial Sepsis Screen: Does the patient meet any 2 criteria? HR > 90 bpm. No. Patient's nj1 initial sepsis screen is negative. Does the patient have a suspected source of infection? No. Patient's initial sepsis screen is negative. Historical: - Allergies: :59 No Known Allergies; iw - Home Meds: 10:02 levothyroxine oral [Active]; iw - PMHx: 09:57 Hypothyroidism; rectal cancer; Vaginal cancer; iw - PSHx: 09:57 section; right knee; iw - Immunization history:: Adult Immunizations unknown. - Infectious Disease History:: Denies. - Family history:: not pertinent. - Social history:: Smoking status: unknown. Screenin:59 [facility] ED Fall Risk Assessment (Adult) History of falling in the last 3 months, iw including since admission Yes- physiologic fall (2 pts) Confusion or Disorientation No (0 pts) Intoxicated or Sedated No (0 pts) Impaired Gait No (0 pts) Mobility Assist Device Used No (0 pt) Altered Elimination No (0 pt) Score/Fall Risk Level 0 - 2 = Low Risk Oriented to surroundings, Maintained a safe environment. Abuse screen: Denies threats or abuse. Denies injuries from another. Nutritional screening: No deficits noted. Tuberculosis screening: No symptoms or risk factors identified. Assessment: 09:58 General: Appears uncomfortable, ill, Behavior is cooperative. Pain: Complains of pain iw in pelvis Pain currently is 6 out of 10 on a pain scale. Neuro: Level of Consciousness is awake, alert, obeys commands, Oriented to person, place, time, situation, Moves all extremities. Respiratory: Respiratory effort is even, unlabored, Respiratory pattern is regular, symmetrical. GI: Abdomen is flat, non-distended. : Lesions noted Swelling noted on labia at vaginal opening Reports vaginal bleeding that is bright red, with clots, heavy flow. Derm: Skin is pale. Musculoskeletal: Range of motion: intact in all extremities. 10:52 Reassessment: Patient appears in no apparent distress at this time. Patient and/or az1 family updated on plan of care and expected duration. Pain level reassessed. Patient is alert, oriented x 3, equal unlabored respirations, skin warm/dry/pink. 11:59 Reassessment: Patient appears in no apparent distress at this time. Pt nj1 resting/sleeping. Blood transfusion in progress. 13:14 Reassessment: Patient appears in no apparent distress at this time. EMS here to [facility] transfer patient. Report given to EMS by Manuela Lopez RN. Second unit PRBC's transfusion transfer of care given to them at this time. Vital Signs: 09:55 BP 92 / 44; Pulse 97; Resp 18; Temp 97; Pulse Ox 100% on R/A; Weight 63.5 kg; Height 4 iw ft. 10 in. ; Pain 6/10; 09:59 BP 95 / 60; Pulse 95; Resp 18; Pulse Ox 100% on R/A; ph 10:19 Pain 6/10; nj1 10:52 BP 100 / 57; Pulse 85; Resp 12; Pulse Ox 100% ; [facility] 12:00 BP 91 / 58; Pulse 86; Resp 12; Temp 97.8(TE); Pulse Ox 100% ; [facility] 12:05 BP 82 / 49; MAP 61 mmHg; nj1 13:14 BP 109 / 74; Pulse 88; Resp 11; Pulse Ox 100% on R/A; nj1 09:55 Body Mass Index 29.26 (63.50 kg, 147.32 cm) iw 09:55 Pain Scale: Adult iw 10:19 Pain Scale: Adult nj1 ED Course: 09:35 Patient arrived in ED. ms3 09:35 Tobias Cano MD is Attending Physician. lane 09:38 Susy Sotelo, RN is Primary Nurse. ph 09:[address] Cano with Umesh Amaral from the [facility] eb Center. 09:57 Triage completed. iw 09:57 Arm band placed on. iw 09:57 Initial lab(s) drawn, by me, sent to lab. T\T\S collected, blood band applied to patient. iw Inserted saline lock: 18 gauge in right antecubital area, using aseptic technique. Blood collected. 10:00 XRAY Chest (1 view) In Process Unspecified. EDMS 10:10 connected the Oncologist electronics technology department chair for [facility] with Dr. Cano for patient eb transfer consultation. 10:22 Annalise De La Torre, JAEL is Primary Nurse. nj1 10:44 connected the hospitalist electronics technology department chair for [facility] with Dr. Cano for patient eb transfer consultation. 10:50 Patient has correct armband on for positive identification. Bed in low position. Call nj1 light in reach. Side rails up X 1. Adult w/ patient. Provided Education on: Blood Transfusion, call light, fall precautions. 10:51 Client placed on continuous cardiac and pulse oximetry monitoring. NIBP monitoring nj1 applied. enterprise sales person on. Warm blanket given. 11:41 administrative approval given by Umesh Amaral/ patient has been accepted to [facility] room 2435 / Dr. alex Rain has accepted the patient in transfer/ report to be called to [phone]. 12:06 Notified ED physician of other BP 82/49. Instructions to increase blood transfusion nj1 rate. 13:10 Disposable underwear changed at this time per patient report, assisted by Manuela Lopez RN. nj1 13:13 No provider procedures requiring assistance completed. Patient transferred, IV remains nj1 in place. Administered Medications: 10:16 Drug: NS 0.9% IV 1000 ml IV at 1 bolus Per protocol; 1000 mL bolus Route: IV; Rate: 1 nj1 bolus; Site: right antecubital; 11:30 Follow up: Response: No adverse reaction; IV Status: Completed infusion; IV Intake: nj1 1000ml 10:17 Drug: Ondansetron IVP 4 mg IVP once; over 2 minutes Route: IVP; Site: right antecubital;nj1 11:00 Follow up: Response: No adverse reaction nj1 10:19 Drug: fentaNYL (PF) IVP 25 mcg IVP once Route: IVP; Site: right antecubital; nj1 11:00 Follow up: Response: No adverse reaction; Pain is decreased nj1 10:40 Drug: Piperacillin-Tazobactam IVPB 3.375 grams IVPB once over 60 mins; (mix in NS 100 nj1 mL) Route: IVPB; Infused Over: 60 mins; Site: left antecubital; 11:40 Follow up: Response: No adverse reaction; IV Status: Completed infusion; IV Intake: nj1 100ml 11:05 Drug: tranexamic acid 1000 mg IV at per protocol once; administer at a rate not to nj1 exceed 100 mg per min Route: IV; Rate: per protocol; Infused Over: 20 mins; Site: right antecubital; 11:25 Follow up: Response: No adverse reaction; IV Status: Completed infusion; IV Intake: nj1 100ml 12:27 Drug: NS 0.9% IV 1000 ml IV at 1 bolus Per protocol; 1000 mL bolus Route: IV; Rate: 1 nj1 bolus; Site: right antecubital; 13:23 Follow up: IV Status: Infusion continued upon transfer; IV Intake: 500ml nj1 12:49 Drug: Phytonadione Sub-Q 10 mg Sub-Q once Route: Sub-Q; Site: left upper abdomen; nj1 13:23 Follow up: Response: No adverse reaction nj1 13:03 Drug: fentaNYL (PF) IVP 25 mcg IVP once Route: IVP; Site: left antecubital; nj1 13:24 Follow up: Response: No adverse reaction; Pain is decreased nj1 Medication: 10:00 VIS not applicable for this client. iw Intake: 11:25 IV: 100ml; Total: 100ml. nj1 11:30 IV: 1000ml; Total: 1100ml. nj1 11:40 IV: 100ml; Total: 1200ml. nj1 13:23 IV: 500ml; Total: 1700ml. nj1 Outcome: 10:03 ER care complete, transfer ordered by . lane 13:13 Transferred by ground EMS to [facility], Transfer form completed. nj1 Note: Report given to Dionicio ELDER 13:13 Condition: stable 13:13 Instructed on the need for transfer, 13:30 Patient left the ED. nj1 Signatures: Dispatcher [employer] EDTobias Weems MD MD cha Williams, Irene, RN RN iw Susy Sotelo RN Jessica Lagunas ph, Marcus, DO DO ms3 Annalise De La Torre RN RN nj1 Corrections: (The following items were deleted from the chart) 10:10 09:55 BP 92 / 44; Pulse 97bpm; Resp 18bpm; Pulse Ox 100% RA; 63.5 kg; Height 4 ft. 10 iw in.; BMI: 29.2; Pain 6/10, Adult; iw
[2024-02-16] MEDS ORDERED: ONDANSETRON 4 MG/2 ML VIAL ONE (10:07)
[2024-02-16] MEDS ORDERED: FENTANYL CITR 100 MCG/2 ML ONE ×2 (10:08→13:01)
[2024-02-16] MEDS ORDERED: NA CHLORIDE 0.9% 1,000 ML ONE ×2 (10:09→12:33)
[2024-02-16] MEDS ORDERED: PIPERACIL/TAZO 3.375 GM VIAL IV ONE (10:10)
--- NOTE | 2024-02-16 10:10 | RAD REPORT ---
EXAM DESCRIPTION: [facility] Single View02/16/2024 9:59 am CLINICAL HISTORY: Chest pain COMPARISON: none FINDINGS: The lungs appear clear of acute infiltrate. The heart is normal size IMPRESSION: No acute abnormalities displayed
[2024-02-16] MEDS ORDERED: NA CHLORIDE 0.9% 100 ML ONE ×2 (10:11→10:55)
[2024-02-16 10:23] LABS: ALT/SGPT < 14 U/L (13-56); Albumin 2.2 g/dL (3.4-5.0); Albumin/Globulin Ratio 0.6 (1.1-1.8); Alkaline Phosphatase 47 U/L (45-117); Anion Gap 6.2 mEq/L (5.0-15.0); BUN Blood Urea Nitrogen 8 mg/dL (7-18); Bicarbonate 26 mEq/L (21-32); Bilirubin Direct < 0.2 mg/dL (0-0.2); Bilirubin Indirect, Calculated 0.1 mg/dL (0.2-0.8); Bilirubin Total 0.3 mg/dL (0.2-1.0); Globulin 3.7 g/dL (2.3-3.5); Glomerular Filtration Rate 103 ml/min (=/>90); Glucose Level 175 mg/dL (74-106); Magnesium 1.9 mg/dL (1.6-2.4); NT PRO-BNP 157 pg/mL (<125); Potassium 4.2 mEq/L (3.5-5.1); Protein, Total 5.9 g/dL (6.4-8.2); Sodium Level 138 mEq/L (136-145); Troponin High Sensitivity 9.1 pg/mL (<58.9)
[2024-02-16 10:30] LABS: AST/SGOT < 10 U/L (15-37)
[2024-02-16 10:52] LABS: PT Prothrombin Time 14.3 SECONDS (9.5-12.5); Protime INR 1.31
[2024-02-16] MEDS ORDERED: TRANEXAMIC ACID 1,000 MG/10 ML VIAL IV ONE (10:55)
[2024-02-16] MEDS ORDERED: VITAMIN K (ADULT) 10 MG/ML ONE (12:32)
[2024-02-16 12:35] LABS: Anisocytosis 2+; Blood Morphology Comment NOTED (NOT SEEN); Hypochromasia 2+; Microcytosis 2+; Platelet Estimate ADEQ; White Blood Cell Scan OK (OK)
[2024-02-16] MEDS ORDERED: NA CHLORIDE 0.9% 500 ML ONE (12:51)
[2024-02-16 13:45] VITALS: BP 109/74; TEMP 97.8; O2SAT 100
--- NOTE | 2024-02-17 13:55 | EKG ---
Test Date: 2024-02-16 Test Time: 10:35:59 Egg Trayer: MICK MEASUREMENT RESULTS: Intervals: Rate: 86 MI: 136 QRSD: 78 QT: 390 QTc: 466 [place]: P: 63 MI: 136 QRS: 58 T: 59 INTERPRETIVE STATEMENTS: Normal sinus rhythm Normal ECG Compared to ECG 02/15/2024 15:27:47 Sinus tachycardia no longer present Electronically Signed On 02-17-24 13:53:47 CDT by Tru Tian
== END 2024-02-16 13:30 | disposition short-term general hospital (02) ==
LOC: ER 09:31
PROC: 30233N1 Transfusion of Nonautologous Red Blood Cells into Peripheral Vein, Percutaneous Approach (ICD-10-PCS; principal; 2024-02-16)
DX: D07.1 Carcinoma in situ of vulva (principal); D63.0 Anemia in neoplastic disease; D62 Acute posthemorrhagic anemia; D72.829 Elevated white blood cell count, unspecified; C20 Malignant neoplasm of rectum
CPT/HCPCS: 93005; 85025; 80048; 36415; 86900; 83735; 86850; 85610; 86901; 80076; 86920 ×2; 84484; 83880; 71045; 96372; 99285; 36430; J3430; J2543; J3010 ×2; J2405; P9016 ×2; J7040; J7030 ×2

== ENCOUNTER 2024-11-24 09:22 | Emergency (ER) | payer OTHER ==
[2024-11-24] MEDS ORDERED: ONDANSETRON 4 MG/2 ML VIAL ONE (09:46)
[2024-11-24] MEDS ORDERED: NA CHLORIDE 0.9% 1,000 ML ONE ×2 (09:46→11:16)
[2024-11-24] MEDS ORDERED: HYDROMORPHONE HCL 1 MG/ML INJ ONE ×3 (09:49→12:07)
[2024-11-24 10:17] LABS: Absolute Lymphocytes (CBC) 0.5 K/uL (0.7-4.9); Absolute Monocytes 0.1 K/uL (0.1-1.3); Absolute Neutrophil 1.1 K/uL (1.8-8.0); Basophils % 0.5 % (0-1.3); Hematocrit 21.8 % (36.0-45.0); Hemoglobin 7.3 g/dL (12.0-15.0); Lymphocytes % 28.4 % (15.3-44.8); MCHC 33.7 g/dL (32.0-36.0); MCV 91.9 fL (80-100); MPV 7.4 fL (7.6-11.3); Monocytes % 5.3 % (3.3-12.3); Neutrophils % 65.8 % (41.7-73.7); Nucleated Red Blood Cells % 0.3 % (0-0); Platelets 100 thou/uL (152-406); RBC Red Blood Cell Count 2.37 M/uL (3.86-4.86); Red Cell Distribution Width 20.3 % (12.1-15.2)
--- NOTE | 2024-11-24 11:04 | RAD REPORT ---
EXAMINATION: CT ABDOMEN AND PELVIS WITHOUT CONTRAST CLINICAL INDICATION: Abdominal pain TECHNIQUE: CT abdomen and pelvis was performed, as per department protocol. IV contrast and oral was not administered.Axial, sagittal and coronal reconstructions were obtained. One or more of the following dose reduction techniques were used: Automated exposure control, adjustment of the mA and/o r kV according to the patient size, and/or iterative reconstruction. Unless otherwise specified, incidental findings do not require dedicated imaging follow-up. [id number]. COMPARISON: 2023 FINDINGS: The lack of intravenous and oral contrast limits evaluation of solid organs, vessels and bowel. The liver, spleen, pancreas, adrenals and kidneys appear grossly normal No evidence of diverticulitis Extensive air is present within the perineum extending to fascial planes of the right thigh, right gl uteus and posterior subcutaneous tissues of the pelvis. Small amount of air extends to the fascial planes left gluteus as well as lower left lateral abdomina l wall. No significant fluid collection visualized. Rectal wall thickening IMPRESSION: Necrotizing fasciitis
[2024-11-24 11:09] LABS: Band Neutrophils 36 % (0-1); Differential Total Cells Count 100; Eosinophils 1 % (0-3); Lymphocytes 31 % (15-42); Metamyelocytes 2 % (0-0); Monocytes 8 % (0-10); Segmented Neutrophils 22 % (40-80)
[2024-11-24 11:10] LABS: Anisocytosis 1+; Blood Morphology Comment NOTED (NOT SEEN); Nucleated Red Blood Cells 2 /100WBC; Platelet Estimate DECR
[2024-11-24 11:11] LABS: Polychromasia 1+
[2024-11-24] MEDS ORDERED: NA CHLORIDE 0.9% 100 ML ONE (11:16)
[2024-11-24] MEDS ORDERED: VANCOMYCIN 1 GM/VIAL ONE (11:16)
[2024-11-24] MEDS ORDERED: NA CHLORIDE 0.9% 250 ML ONE (11:16)
[2024-11-24] MEDS ORDERED: FAMOTIDINE 20 MG/2 ML VIAL IV ONE (11:16)
[2024-11-24] MEDS ORDERED: PIPERACIL/TAZO 3.375 GM VIAL IV ONE (11:17)
[2024-11-24 11:21] LABS: Albumin 2.4 g/dL (3.4-5.0); Albumin/Globulin Ratio 0.6 (1.1-1.8); Anion Gap 25.9 mEq/L (5.0-15.0); Bilirubin Total 0.8 mg/dL (0.2-1.0); Globulin 3.9 g/dL (2.3-3.5); Potassium 3.9 mEq/L (3.5-5.1); Protein, Total 6.3 g/dL (6.4-8.2)
[2024-11-24] MEDS ORDERED: Levofloxacin500mg IV 500 MG/100 ML BAG IV ONE (11:25)
--- NOTE | 2024-11-24 11:34 | EDPHYS ---
Physician Documentation [facility] Name: Taisha Torres Age: 44 yrs Sex: Female : 1980 Arrival Date: 11/24/2024 Time: 09:22 Bed 7 Private MD: Tobias Britt HPI: 11/24 11:21 This 44 yrs old Female presents to ER via Wheelchair with complaints of lane Abdominal Pain, Vaginal Bleeding. Historical: - Allergies: 09:40 No Known Allergies; hb - PMHx: 09:40 Hypothyroidism; rectal cancer; Vaginal cancer; hb - PSHx: 09:40 right knee; section; hb - Immunization history:: Adult Immunizations up to date. - Infectious Disease History:: Denies. - Social history:: Smoking status: Patient denies any tobacco usage or history of. ROS: 11:24 Constitutional: Positive for chills, fatigue, fever, lane 11:24 Respiratory: Positive for shortness of breath, at rest. 11:24 Abdomen/GI: Positive for abdominal pain, nausea and vomiting, nausea, vomiting, abdominal cramps, abdominal distension, of the right upper quadrant, left upper quadrant, right lower quadrant and left lower quadrant, 11:24 MS/extremity: Positive for decreased range of motion, erythema, pain, swelling, tenderness, of the right leg, 11:24 Skin: Positive for abscess, cellulitis, swelling, of the buttocks and right leg, 11:24 Neuro: Positive for weakness, Exam: 11:24 Head/face: Exam is negative for acute changes, obvious evidence of injury or deformity, lane abrasion(s), contusion, deformity, 11:24 Cardiovascular: Rate: normal, actual rate is 80 bpm, Rhythm: regular, Heart sounds: normal, Edema: is not appreciated, JVD: is not appreciated, 11:24 ECG was reviewed by the Attending Physician. 11:24 Musculoskeletal/extremity: ROM: limited active range of motion due to pain, limited passive range of motion due to pain, right leg without , rom, 11:24 Skin: cellulitis, that is severe, well demarcated, on the right gluteus chasidy and right gluteal fold, 11:24 Neuro: Orientation: is normal, appropriate for stated age, no acute changes, Mentation: is normal, appropriate for stated age, no acute changes, Memory: is normal, Cerebellar function: is grossly normal, Gait: not tested. seizure activity, is not displayed by the patient, Vital Signs: 09:39 BP 144 / 88; Pulse 80; Resp 24; Temp 97.7; Pulse Ox 100% on R/A; Weight 61.23 kg; hb Height 4 ft. 10 in. ; Pain 10/10; 10:30 Pain 5/10; jl7 11:15 BP 112 / 92; Pulse 115; Resp 22; Pulse Ox 100% ; jl7 11:42 Pain 3/10; jl7 12:00 BP 60 / 50; Pulse 100; Resp 15; Pulse Ox 100% ; jl7 09:39 Body Mass Index 28.21 (61.23 kg, 147.32 cm) hb 09:39 Pain Scale: Adult hb 10:30 Pain Scale: Adult jl7 11:42 Pain Scale: Adult jl7 NIH Stroke Scale Scores: 12:01 NIHSS Score: 4 lane Procedures: 11:31 Peripheral line: by aseptic technique a peripheral line was placed in the left external lane jugular vein. MDM: 09:32 Medical Screening Exam initiated lane 11:29 Differential diagnosis: malignancy, Neoplasm urinary tract infection. Data reviewed: [facility] vital signs, nurses notes, EMS record, lab test result(s), EKG, radiologic studies, CT scan, plain films. Consideration of Admission/Observation Escalation of care including admission/observation considered. I considered the following discharge prescriptions or medication management in the emergency department Medications were administered in the Emergency Department. See MAR. Independent interpretation of the following test(s) in the Emergency Department EKG: See my EKG interpretation above. Test considered but Not performed: MRI: no mri spine. Historians other than the Patient: Spouse/Significant Other: spouse well informed. Care significantly affected by the following chronic conditions: Chronic Kidney Disease. Counseling: I had a detailed discussion with the patient and/or guardian regarding the historical points, exam findings, and any diagnostic results supporting the discharge/admit diagnosis, lab results, radiology results, the need to transfer to another facility, for higher level of care, [facility] does not immediately have the required specialist. 11/24 09:33 Order name: CBC with Diff; Complete Time: 11:18 [facility] 11/24 09:33 Order name: CMP; Complete Time: 11:33 [facility] 11/24 09:33 Order name: Lipase; Complete Time: 11:33 [facility] 11/24 11:08 Order name: Lactate w/ 2H reflex if indic. [facility] 11/24 11:08 Order name: Blood Culture Adult (2) [facility] 11/24 11:08 Order name: Troponin High Sensitivity [facility] 11/24 11:09 Order name: Type And Screen [facility] 11/24 11:11 Order name: Manual Differential; Complete Time: 11:18 EDMS 11/24 09:49 Order name: CT Abd/Pelvis - Without Contrast; Complete Time: 11:08 [facility] 11/24 09:33 Order name: IV Saline Lock; Complete Time: 10:09 [facility] 11/24 09:33 Order name: Labs collected and sent; Complete Time: 10:09 [facility] 11/24 11:08 Order name: EKG - Nurse/Tech [facility] 11/24 11:08 Order name: IV Saline Lock - Large Bore; Complete Time: 11:23 [facility] 11/24 11:46 Order name: NPO; Complete Time: 11:47 [facility] Administered Medications: 10:08 Drug: Ondansetron IVP 4 mg IVP once; over 2 minutes Route: IVP; Site: right antecubital;jl7 12:23 Follow up: Response: No adverse reaction jl7 10:09 Drug: NS 0.9% IV 1000 ml IV at 1 bolus Per protocol; to be given as a bolus over 60 jl7 minutes Route: IV; Rate: 1 bolus; Site: right antecubital; 11:00 Follow up: IV Status: Completed infusion; IV Intake: 1000ml jl7 10:09 Drug: HYDROmorphone IVP 1 mg IVP once Route: IVP; Site: right antecubital; jl7 10:30 Follow up: Pain 5/10 Adult; Response: No adverse reaction; Pain is decreased; RASS: jl7 Drowsy (-1) 10:25 Not Given (Duplicate Order): ondansetron 4 mg IVP once; over 2 minutes jl7 11:15 Drug: HYDROmorphone IVP 1 mg IVP once Route: IVP; Site: right antecubital; jl7 11:42 Follow up: Pain 3/10 Adult; Response: No adverse reaction; Pain is decreased; RASS: jl7 Drowsy (-1) 11:33 Drug: Piperacillin-Tazobactam IVPB 3.375 grams IVPB once over 60 mins; (mix in NS 100 ap3 mL) Route: IVPB; Infused Over: 60 mins; Site: right antecubital; 12:24 Follow up: Response: No adverse reaction; IV Status: Infusion continued upon transfer jl7 11:33 Drug: vancoMYCIN IVPB 1 grams IVPB once over 2 hrs Route: IVPB; Infused Over: 2 hrs; ap3 Site: left jugular; 12:24 Follow up: Response: No adverse reaction; IV Status: Infusion continued upon transfer jl7 11:33 Drug: Famotidine IVP 20 mg IVP once; dilute with 10 mL 0.9% NaCl; give over 2 minutes ap3 Route: IVP; Site: right antecubital; 12:24 Follow up: Response: No adverse reaction 7 Drug: NS 0.9% IV (30 ml/kg) 30 ml/kg IV at bolus once; Sepsis Protocol; to be given as ap3 a bolus over 90 minutes Route: IV; Rate: bolus; Site: left jugular; 12:24 Follow up: IV Status: Infusion continued upon transfer; . jl7 12:04 Drug: levofloxacin IVPB 500 mg 100 ml IVPB once over 60 mins Volume: 100 ml; Route: jl7 IVPB; Infused Over: 60 mins; Site: right antecubital; 12:24 Follow up: IV Status: Infusion continued upon transfer jl7 12:04 Drug: D5W IV 1000 ml, Sodium Bicarbonate IVP 150 mEq IV at 125 ml/hr continuous Route: jl7 IV; Rate: 125 ml/hr; Site: right antecubital; 12:25 Follow up: IV Status: Infusion continued upon transfer jl7 Disposition Summary: 11/24/24 11:33 Transfer Ordered Notes: Transfer Location: [facility] lane Reason: Higher level of care lane Condition: Critical lane Problem: new lane Symptoms: have improved lane Accepting Physician: to surgical icu, [facility](11/24/24 12:33) jl7 Diagnosis - Necrotizing fasciitis - vulvar, right buttock lane - Anemia in neoplastic disease lane - Neutropenia, unspecified lane - Abdominal tenderness lane Forms: - Medication Reconciliation Form lane - SBAR form lane NIH Stroke Scale - NIH Stroke Score Date: 11/24/2024 Time: 12:01 Total Score = 4 10. Dysarthria (speech clarity - read or repeat words) - 0(Normal) 11. Extinction and Inattention (visual/tactile/auditory/spatial/personal) - 0(No abnormality) 1a. Level of Consciousness (LOC) - 0(Alert) 1b. Level of Consciousness (LOC) (Month \T\ Age) - 0(Both) 1c. LOC Commands (Open \T\ Closes Eyes/Electrolytic Etcher) - 0(Both) 2. Best Gaze (Lateral Gaze Paresis) - 0(Normal) 3. Visual Field Loss - 0(No visual loss) 4. Facial Palsy - 0(Normal) 5a. Left Arm: Motor (10-second hold) - 0(No drift) 5b. Right Arm: Motor (10-second hold) - 0(No drift) 6a. Left Leg: Motor (5-second hold - always test supine) - 0(No drift) 6b. Right Leg: Motor (5-second hold - always test supine) - 3(No effort against gravity) 7. Limb Ataxia (finger/nose \T\ heel/álvarez - test with eyes open) - 0(Absent) 8. Sensory Loss (pinprick arms/legs/face) - 1(Mild to moderate loss) 9. Best Language: Aphasia (description/naming/reading) - 0(No aphasia) Initials: lane Signatures: Dispatcher [employer] EDMS Tobias Cano MD MD cha Baxter, Heather, RN RN Anastasiya Madden RN RN jl7 Usha Freitas RN RN ap3 Corrections: (The following items were deleted from the chart) 09:33 09:33 Transvaginal Study (Probe)+US.RAD.BRZ ordered. EDMS EDMS 11:08 11:08 LACTATE+C.LAB.BRZ ordered. EDMS EDMS 11:08 11:08 BLOOD CULTURE*+BA.LAB.BRZ ordered. EDMS EDMS 11:08 11:08 Troponin High Sensitivity+C.LAB.BRZ ordered. EDMS EDMS 11:08 11:08 Chest Single View+RAD.RAD.BRZ ordered. EDMS EDMS 12:33 11:33 to surgical icu, [facility] lane enriquez
--- NOTE | 2024-11-24 11:34 | ER ---
Nurse's Notes [facility] [place] Name: Taisha Torres Age: 44 yrs Sex: Female : 1980 Arrival Date: 11/24/2024 Time: 09:22 Bed 7 Private MD: Diagnosis: Necrotizing fasciitis-vulvar, right buttock;Anemia in neoplastic disease;Neutropenia, unspecified;Abdominal tenderness Presentation: 11/24 09:39 Chief complaint: Severe abdominal pain upon waking today. Receiving chemo and radiation hb at [facility] for stage 4 vaginal cancer. Coronavirus screen: At this time, the client does not indicate any symptoms associated with coronavirus-19. Ebola Screen: No symptoms or risks identified at this time. Initial Sepsis Screen: Does the patient meet any 2 criteria? No. Patient's initial sepsis screen is negative. Does the patient have a suspected source of infection? No. Patient's initial sepsis screen is negative. Risk Assessment: Do you want to hurt yourself or someone else? Patient reports no desire to harm self or others. Onset of symptoms was November 24, 2024. 09:39 Method Of Arrival: Wheelchair hb 09:39 Acuity: ELDER 2 hb Historical: - Allergies: 09:40 No Known Allergies; hb - PMHx: 09:40 Hypothyroidism; rectal cancer; Vaginal cancer; hb - PSHx: 09:40 right knee; section; hb - Immunization history:: Adult Immunizations up to date. - Infectious Disease History:: Denies. - Social history:: Smoking status: Patient denies any tobacco usage or history of. Screenin:45 [facility] ED Fall Risk Assessment (Adult) History of falling in the last 3 months, jl7 including since admission No falls in past 3 months (0 pts) Confusion or Disorientation No (0 pts) Intoxicated or Sedated No (0 pts) Impaired Gait No (0 pts) Mobility Assist Device Used No (0 pt) Altered Elimination No (0 pt) Score/Fall Risk Level 0 - 2 = Low Risk Oriented to surroundings, Maintained a safe environment. Abuse screen: Denies threats or abuse. Denies injuries from another. Nutritional screening: No deficits noted. Tuberculosis screening: No symptoms or risk factors identified. Assessment: 09:45 General: Appears in no apparent distress. uncomfortable, ill, well groomed, Behavior is jl7 cooperative, appropriate for age, restless. Pain: Complains of pain in abdomen Pain currently is 10 out of 10 on a pain scale. Neuro: Level of Consciousness is awake, alert, obeys commands, Oriented to person, place, time, situation. Cardiovascular: Patient's skin is warm and dry. Respiratory: Airway is patent Respiratory effort is even, unlabored, Respiratory pattern is symmetrical, tachypnea. GI: Abdomen is round non-distended. Derm: Skin is dry, Skin is pale, Skin temperature is cool. 10:30 Reassessment: Pt cleaned of fecal incontinence. Derm: skin sloughing off of left jl7 buttocks when wiping feces away, pt denies pain. Black area of skin noted from rectum to right buttocks. 11:00 Reassessment: Dr. Cano at bedside to discuss results and POC. jl7 11:30 Reassessment: Pt requesting to be full code should her heart stop. ERD notified. jl7 12:00 Reassessment: Dr. Cano gave VO for 1 mg Dilaudid prior to life flight departure. Pt jl7 BP noted to be 60/50, will waste Dilaudid in pyxis. Vital Signs: 09:39 BP 144 / 88; Pulse 80; Resp 24; Temp 97.7; Pulse Ox 100% on R/A; Weight 61.23 kg; hb Height 4 ft. 10 in. ; Pain 10/10; 10:30 Pain 5/10; jl7 11:15 BP 112 / 92; Pulse 115; Resp 22; Pulse Ox 100% ; jl7 11:42 Pain 3/10; jl7 12:00 BP 60 / 50; Pulse 100; Resp 15; Pulse Ox 100% ; jl7 09:39 Body Mass Index 28.21 (61.23 kg, 147.32 cm) hb 09:39 Pain Scale: Adult hb 10:30 Pain Scale: Adult jl7 11:42 Pain Scale: Adult jl7 NIH Stroke Scale Scores: 12:01 NIHSS Score: 4 lane ED Course: 09:25 Patient arrived in ED. al6 09:32 Tobias Cano MD is Attending Physician. lane 09:39 Anastasiya Mistry RN is Primary Nurse. jl7 09:40 Triage completed. hb 09:40 Arm band placed on. hb 09:45 Patient has correct armband on for positive identification. Bed in low position. Call jl7 light in reach. Side rails up X 1. Provided Education on: use of call perez. Client placed on continuous cardiac and pulse oximetry monitoring. NIBP monitoring applied. suspender maker on. Warm blanket given. 09:59 Missed attempt(s): 22 gauge in right antecubital area. ap3 10:00 Initial lab(s) drawn, by me, sent to lab. Inserted saline lock: 22 gauge in right jl7 antecubital area, using aseptic technique. Blood collected. Flushed with 10 mL NS. 10:45 CT Abd/Pelvis - Without Contrast In Process Unspecified. EDMS 11:00 First set of blood cultures drawn by physician. Inserted saline lock: 18 gauge in left jl7 EJ, using aseptic technique. ,using aseptic technique. inserted by Dr. Cano Blood collected. Flushed with 10 mL NS. 11:19 initiated transfer with Wil at the [facility]. [facility] 11:51 received acceptance with Wil for [address] bed 5. [facility] 12:00 No provider procedures requiring assistance completed. Patient transferred, IV remains jl7 in place. intact, No redness/swelling at site. 12:06 flight here for transfer. bc6 Administered Medications: 10:08 Drug: Ondansetron IVP 4 mg IVP once; over 2 minutes Route: IVP; Site: right antecubital;[facility] 12:23 Follow up: Response: No adverse reaction [facility] 10:09 Drug: NS 0.9% IV 1000 ml IV at 1 bolus Per protocol; to be given as a bolus over 60 7 minutes Route: IV; Rate: 1 bolus; Site: right antecubital; 11:00 Follow up: IV Status: Completed infusion; IV Intake: 1000ml [facility] 10:09 Drug: HYDROmorphone IVP 1 mg IVP once Route: IVP; Site: right antecubital; [facility] 10:30 Follow up: Pain 5/10 Adult; Response: No adverse reaction; Pain is decreased; RASS: [facility] Drowsy (-1) 10:25 Not Given (Duplicate Order): ondansetron 4 mg IVP once; over 2 minutes [facility] 11:15 Drug: HYDROmorphone IVP 1 mg IVP once Route: IVP; Site: right antecubital; jl7 11:42 Follow up: Pain 3/10 Adult; Response: No adverse reaction; Pain is decreased; RASS: [facility] Drowsy (-1) 11:33 Drug: Piperacillin-Tazobactam IVPB 3.375 grams IVPB once over 60 mins; (mix in NS 100 ap3 mL) Route: IVPB; Infused Over: 60 mins; Site: right antecubital; 12:24 Follow up: Response: No adverse reaction; IV Status: Infusion continued upon transfer jl7 11:33 Drug: vancoMYCIN IVPB 1 grams IVPB once over 2 hrs Route: IVPB; Infused Over: 2 hrs; ap3 Site: left jugular; 12:24 Follow up: Response: No adverse reaction; IV Status: Infusion continued upon transfer 7 :33 Drug: Famotidine IVP 20 mg IVP once; dilute with 10 mL 0.9% NaCl; give over 2 minutes ap3 Route: IVP; Site: right antecubital; 12:24 Follow up: Response: No adverse reaction [facility] :33 Drug: NS 0.9% IV (30 ml/kg) 30 ml/kg IV at bolus once; Sepsis Protocol; to be given as ap3 a bolus over 90 minutes Route: IV; Rate: bolus; Site: left jugular; 12:24 Follow up: IV Status: Infusion continued upon transfer; . 7 12:04 Drug: levofloxacin IVPB 500 mg 100 ml IVPB once over 60 mins Volume: 100 ml; Route: jl7 IVPB; Infused Over: 60 mins; Site: right antecubital; 12:24 Follow up: IV Status: Infusion continued upon transfer [facility] 12:04 Drug: D5W IV 1000 ml, Sodium Bicarbonate IVP 150 mEq IV at 125 ml/hr continuous Route: jl7 IV; Rate: 125 ml/hr; Site: right antecubital; 12:25 Follow up: IV Status: Infusion continued upon transfer [facility] Medication: 09:45 VIS not applicable for this client. 7 Intake: 11:00 IV: 1000ml; Total: 1000ml. Outcome: :33 ER care complete, transfer ordered by MD. sherman 12:00 Transferred by helicopter to [facility], Transfer form completed. [facility] 12:00 Condition: stable 12:00 Discharge instructions given to patient, Instructed on the need for transfer, Demonstrated understanding of instructions, 12:33 Patient left the ED. jl7 NIH Stroke Scale - NIH Stroke Score Date: 11/24/2024 Time: 12:01 Total Score = 4 10. Dysarthria (speech clarity - read or repeat words) - 0(Normal) 11. Extinction and Inattention (visual/tactile/auditory/spatial/personal) - 0(No abnormality) 1a. Level of Consciousness (LOC) - 0(Alert) 1b. Level of Consciousness (LOC) (Month \T\ Age) - 0(Both) 1c. LOC Commands (Open \T\ Closes Eyes/[employer]) - 0(Both) 2. Best Gaze (Lateral Gaze Paresis) - 0(Normal) 3. Visual Field Loss - 0(No visual loss) 4. Facial Palsy - 0(Normal) 5a. Left Arm: Motor (10-second hold) - 0(No drift) 5b. Right Arm: Motor (10-second hold) - 0(No drift) 6a. Left Leg: Motor (5-second hold - always test supine) - 0(No drift) 6b. Right Leg: Motor (5-second hold - always test supine) - 3(No effort against gravity) 7. Limb Ataxia (finger/nose \T\ heel/álvarez - test with eyes open) - 0(Absent) 8. Sensory Loss (pinprick arms/legs/face) - 1(Mild to moderate loss) 9. Best Language: Aphasia (description/naming/reading) - 0(No aphasia) Initials: lane Signatures: Dispatcher [employer] EDOH Tobias Cano MD MD cha Baxter, Heather RN Anatsasiya Palmer RN RN jl7 Usha Freitas RN RN ap3 Rocio Wolfe6 Jaymie Heart6 Corrections: (The following items were deleted from the chart) 09:41 09:39 Chief complaint: Severe abdominal pain upon waking today. Receiving chemo hb and radiation at [facility] for stage 4 vulvar cancer. hb 09:42 09:39 Chief complaint: Severe abdominal pain upon waking today. Receiving chemo hb and radiation at [facility] for stage 4 vulvar cancer. hb
[2024-11-24] MEDS ORDERED: D5W 1,000 ML with NA BICARB 8.4% 150 MEQ IV SCH (12:00)
[2024-11-24 13:01] VITALS: TEMP 97.7; O2SAT 100
[2024-11-24 13:05] VITALS: BP 60/50
== END 2024-11-24 12:33 | disposition short-term general hospital (02) ==
LOC: ER 09:22
DX: M72.6 Necrotizing fasciitis (principal); C52 Malignant neoplasm of vagina; D63.0 Anemia in neoplastic disease; D70.9 Neutropenia, unspecified; C20 Malignant neoplasm of rectum
CPT/HCPCS: 87040; 85025; 36415; 86900; 87205; 86901; 83605; 84484; 83690; 80053; 74176; 99285; 36569; J2543; J3370; J1171 ×2; J2405; P9016; J7050; J7030 ×2